=== PATIENT | male | born 1980 | race Two or more races ===

== ENCOUNTER 2025-08-22 13:00 | Emergency (ER) | payer MEDICAID, OTHER ==
[~2025-08-22] VITALS: Ht 165.1 cm; Wt 73.1 kg
--- NOTE | 2025-08-22 13:20 | ECG ---
[facility] Test Date: 2025-08-22 Test Time: 13:15:20 Pat Name: TAMARA SUN Department: Room: Gender: M [employer] A Driver: ROMARIO : 1980 Requested By: SHAMIKA LO Order Number: [id number] Reading MD: Pelon Conley Measurements Intervals [place] Rate: 63 P: 19 MD: 145 QRS: 79 QRSD: 96 T: 47 QT: 412 QTc: 422 Interpretive Statements Sinus rhythm ST elev, probable normal early repol pattern Electronically Signed On 08-22-2025 22:22:39 PDT by Pelon Conley Please click the below link to view image of tracing.
--- NOTE | 2025-08-22 13:24 | ED.PDOC ---
HPI (NEURO) HPI Comments This is a 44 year old male presenting to the ED with chief complaint of dizziness. Patient reports that he has been experiencing dizziness with associated nausea and chest pressure for the past week. Patient relays that he has had chronic episodes of dizziness every since suffering a head injury at work in 2018. Patient states his dizziness is worse today than at onset. Patient denies any chest pain, SOB, headache, vomiting, or abdominal pain. Chief Complaint: Dizziness Time Seen by MD: 13:19 Reviewed Notes: Nurses Notes, Medications, Allergies Information Source: Patient Mode of Arrival: Ambulatory Severity: Moderate Dizziness/Weakness Severity: Unable to do activities Timing: Weeks Duration: Since onset Prehospital treatment: None Onset: At rest Symptoms: Vertigo Past Medical History Past Medical History (Other): Head injury at work x 2018 Surgical History: Denies all surgeries Family History Family History: Reviewed,noncontributory to illness Social History Smoker: Non-Smoker Alcohol: Denies ETOH Use Drugs: Denies Drug Use Lives In: Home Constitutional: denies: chills, diaphoresis, fatigue, fever, malaise, sweats, weakness, others EENTM: denies: blurred vision, double vision, ear bleeding, ear discharge, ear drainage, ear pain, ear ringing, eye pain, eye redness, hearing loss, mouth pain, mouth swelling, nasal discharge, nose bleeding, nose congestion, nose pain, photophobia, tearing, throat pain, throat swelling, voice changes, others Respiratory: denies: cough, hemoptysis, orthopnea, SOB at rest, shortness of breath, SOB with excertion, stridor, wheezing, others Cardiovascular: reports: others (Chest pressure); denies: chest pain, dizzy spells, diaphoresis, Dyspnea on exertion, edema, irregular heart beat, left arm pain, lightheadedness, palpitations, PND, syncope Gastrointestinal: reports: nausea; denies: abdomen distended, abdominal pain, blood streaked bowels, constipated, diarrhea, dysphagia, difficulty swallowing, hematemesis, melena, poor appetite, poor fluid intake, rectal bleeding, rectal pain, vomiting, others Genitourinary: denies: burning, dysuria, flank pain, frequency, hematuria, incontinence, penile discharge, penile sore, pain, testicle pain, testicle swelling, urgency, others Neurological: reports: dizziness; denies: fainting, headache, left sided numbness, left sided weakness, numbness, paresthesia, pre-existing deficit, right sided numbness, right sided weakness, seizure, speech problems, tingling, tremors, weakness, others Musculoskeletal: denies: back pain, gout, joint pain, joint swelling, muscle pain, muscle stiffness, neck pain, others Integumetry: denies: bruises, change in color, change in hair/nails, dryness, laceration, lesions, lumps, rash, wounds, others Allergic/Immunocompromised: denies: Difficulty Healing, Frequent Infections, Hives, Itching, others Hematologic/Lymphatic: denies: anemia, blood clots, easy bleeding, easy bruising, swollen glands, others Endocrine: denies: excessive hunger, excessive sweating, excessive thirst, excessive urination, flushing, intolerance to cold, intolerance to heat, unexplained weight gain, unexplained weight loss, others Psychiatric: denies: anxiety, bipolar disorder, depression, hopeless, panic disorder, schizophrenia, sleepless, suicidal, others All Other Systems: Reviewed and Negative Physical Exam General Appearance: Mild Distress HEENT: Pale Conjuntivae (L) (Redness with some drainage), Pharynx Normal, TMs Normal Neck: Full Range of Motion, Non-Tender, Normal, Normal Inspection Respiratory: Chest Non-Tender, Lungs Clear, No Accessory Muscle Use, No Respiratory Distress, Normal Breath Sounds Cardiovascular: No Edema, No JVD, No Murmur, No Gallop, Normal Peripheral Pulses, Regular Rate/Rhythm Breast Exam: Deferred Gastrointestinal: No Organomegaly, Non Tender, No Pulsatile Mass, Normal Bowel Sounds, Soft Genitalia: Deferred Pelvic: Deferred Rectal: Deferred Extremities: No calf tenderness, Normal capillary refill, Normal inspection, N ormal range of motion, Non-tender, No pedal edema Musculoskeletal : Apperance: Normal Neurologic: Alert, egg separator II-XII nml as Tested, No Motor Deficits, Normal Affect, Normal Mood, No Sensory Deficits Cerebellar Function: Normal Reflexes: Normal Skin: Dry, Normal Color, Warm Lymphatic: No Adenopathy Was a procedure done? Was a procedure done?: No Differential Diagnosis (SZ) Seizure: Idiopathic, Other (Dizziness, generalized weakness, of the hydro syndrome) X-Ray, Labs, Meds, VS Vital Signs Date Time Temp Pulse Resp B/P (MAP) Pulse Ox O2 Delivery O2 Flow Rate FiO2 08/22/25 14:14 98 Room Air* 0 21 08/22/25 14:12 98.0 58 16 111/68 (82) 98 98.0 08/22/25 13:15 63 08/22/25 13:03 97.5 66 18 132/99 98 97.5 Lab Test 08/22/25 14:06 Range/Units White Blood Count 5.9 4.4-10.8 10^3/uL Red Blood Count 5.09 4.5-5.90 10^6/uL Hemoglobin 15.3 13.5-17.5 g/dL Hematocrit 44.3 41.0-53.0 % Mean Corpuscular Volume 87.2 80.0-100.0 fL Mean Corpuscular Hemoglobin 30.1 28.0-32.0 pg Mean Corpuscular Hemoglobin Concent 34.5 32.0-36.0 g/dL Red Cell Distribution Width 13.4 11.8-14.3 % Platelet Count 261 140-450 10^3/uL Mean Platelet Volume 7.7 6.9-10.8 fL Neutrophils (%) (Auto) 46.7 37.0-80.0 % Lymphocytes (%) (Auto) 36.6 10.0-50.0 % Monocytes (%) (Auto) 11.1 0.0-12.0 % Eosinophils (%) (Auto) 4.5 0.0-7.0 % Basophils (%) (Auto) 1.1 0.0-2.0 % Neutrophils # (Auto) 2.8 1.6-8.6 10 ^3/uL Lymphocytes # (Auto) 2.2 0.4-5.4 10 ^3/uL Monocytes # (Auto) 0.7 0-1.3 10 ^3/uL Eosinophils # (Auto) 0.3 0-0.8 10 ^3/uL Basophils # (Auto) 0.1 0-0.2 10 ^3/uL Nucleated Red Blood Cells 0.0 % Sodium Level 142 136-145 mmol/L Potassium Level 4.1 3.5-5.1 mmol/L Chloride Level 106 98-107 mmol/L Carbon Dioxide Level 27 20-31 mmol/L Anion Gap 9 5-15 Blood Urea Nitrogen 10 9-23 mg/dL Creatinine 0.85 0.700-1.30 mg/dL Glomerular Filtration Rate Calc 111 >90 mL/min BUN/Creatinine Ratio 11.8 10.0-20.0 Serum Glucose 98 74-106 mg/dL Calcium Level 9.5 8.7-10.4 mg/dL Troponin I High Sensitivity < 3 L </=54 ng/L Current Medications Medications (Trade) Dose Ordered Sig/Cosmo Route Start Time Stop Time Status Last Admin Ondansetron HCl (Zofran Po) 4 mg ONCE ONCE PO 08/22/25 13:30 08/22/25 13:41 DC 08/22/25 14:11 CT Head indicates: 1. No CT evidence of acute intracranial abnormality. 2. Arachnoid cyst posterior to the cerebellar vermis measuring up to 1.7 cm. The patient's CBC is within normal limits The chemistry panel is within normal limits We did explain to the patient that he needs to follow up with his neurologist for the arachnoid cyst The patient is being discharged on ophthalmological ointment for his conjunctivitis Images Reviewed?: Images reviewed and evaluated by me Time of 1ST Reevaluation: 14:43 Reevaluation 1ST: Improved Patient Education/Counseling: Diagnosis, Treatment, Prognosis, Need For Follow Up Family Education/Counseling: Diagnosis, Treatment, Prognosis, Need For Follow Up Departure 1 Departure Time of Disposition: 14:44 Impression: Primary Impression: Dizziness Additional Impressions: Arachnoid cyst Subconjunctival hemorrhage Qualified Codes: H11.31 - Conjunctival hemorrhage, right eye Disposition: 01 HOME / SELF CARE / HOMELESS Condition: Fair e-Prescriptions Ondansetron Odt 4MG Tab (ZOFRAN PO) 4 Mg Tb 4 MG PO Q12HP PRN for 5 Days, #10 TAB ODT TAB-DISSOLVE IN MOUTH, THEN SWALLOW Prov: SHAMIKA LO MD 08/22/25 Meclizine Hcl (Meclizine Hcl) 12.5 Mg Tab 1 TAB PO BID, #60 TAB Prov: SHAMIKA LO MD 08/22/25 Discharged With: Self Critical Care Note Critical Care Time?: No Stability Stability form required: No Heart Score Heart Score: Heart Score Response (Comments) Value History N/A 0 EKG N/A 0 Age N/A 0 Risk Factors N/A 0 Troponin N/A 0 Total 0 I personally scribed for SHAMIKA LO MD ([email or web address]) on 08/22/25 at 13:24. Electronically submitted by Guille Tristan ([email or web address]). I personally scribed for SHAMIKA LO MD ([email or web address]) on 08/22/25 at 14:40. Electronically submitted by Guille Tristan ([email or web address]). SHAMIKA LO MD Aug 22, 2025 13:24
--- NOTE | 2025-08-22 13:55 | DVH ---
CLINICAL INFORMATION: 44 years old, Male; dizziness. TECHNIQUE: Axial imaging was obtained through the brain without contrast. Coronal and sagittal reform atted images were obtained, reviewed, and stored. Images were reviewed in brain and bone windows. Al l CT scans at this medical facility are performed using dose modulation techniques as appropriate to a performed exam including the following: Automated exposure control was utilized; adjustment of the MA and/or KV according to patient size; and use of iterative reconstruction technique. CTDIvol = 52.9 5 mGy DLP = 847.74 mGy-cm COMPARISON: None FINDINGS: There is no acute intracranial hemorrhage. No midline shift. The ventricles and sulci are within normal limits in size for age. Basal cisterns are patent. There is a small arachnoid cyst post erior to the cerebellar vermis measuring up to 1.3 x 1.2 x 1.7 cm. The calvarium is unremarkable. Mi ld mucosal thickening of the paranasal sinuses. IMPRESSION: 1. No CT evidence of acute intracranial abnormality. 2. Arachnoid cyst posterior to the cerebellar vermis measuring up to 1.7 cm.
[2025-08-22] MEDS: MECLIZINE HCL 25 MG TAB PO ONE (14:11)
[2025-08-22] MEDS: ONDANSETRON ODT 4 MG TAB PO ONE (14:11)
[2025-08-22 14:12] VITALS: BP 111/68; PULSE 58; RESP 16; TEMP 98
[2025-08-22 14:14] VITALS: O2SAT 98
[2025-08-22 14:30] LABS: Hematocrit 44.3 % (41.0-53.0); Hemoglobin 15.3 g/dL (13.5-17.5); Mean Corpuscular Hemoglobin 30.1 pg (28.0-32.0); Mean Corpuscular Volume 87.2 fL (80.0-100.0); Nucleated Red Blood Cells % 0.0 %
[2025-08-22 14:32] LABS: Chloride 106 mmol/L (98-107); Potassium 4.1 mmol/L (3.5-5.1); Sodium 142 mmol/L (136-145)
[2025-08-22 14:33] LABS: Anion Gap 9 (5-15); Carbon Dioxide 27 mmol/L (20-31)
[2025-08-22 14:34] LABS: Calcium 9.5 mg/dL (8.7-10.4)
[2025-08-22 14:38] LABS: Glucose 98 mg/dL (74-106)
[2025-08-22 14:39] LABS: BUN/Creatinine Ratio 11.8 (10.0-20.0); Blood Urea Nitrogen 10 mg/dL (9-23)
[2025-08-22] MEDS ORDERED: MECL12.586 PO (14:41)
[2025-08-22] MEDS ORDERED: ZOFR4T PO (14:41)
== END 2025-08-22 15:03 | disposition home or self-care (01) ==
LOC: ER 13:00
DX: G93.0 Cerebral cysts (principal); R42 Dizziness and giddiness; H11.31 Conjunctival hemorrhage, right eye
CPT/HCPCS: 36415; 70450; 80048; 84484; 85025; 93005; 99284; Q0162